=== PATIENT | female | born 1950 | race Hispanic/Latino ===

== ENCOUNTER 2020-11-29 07:35 | Inpatient (IN) | payer OTHER, MEDICARE ==
[~2020-11-29] VITALS: Ht 149.9 cm; Wt 75.9 kg
[2020-11-29 08:10] LABS: BASOPHILS % (AUTO) 0.4 % (0.0-5.0); EOSINOPHILS % (AUTO) 1.6 % (0.0-8.0); HEMATOCRIT 39.9 % (36-48); LYMPHOCYTES % (AUTO) 35.5 % (21.0-51.0); MEAN CORPUSCULAR HEMOGLOBIN 27.2 pg (27.0-33.0); MEAN CORPUSCULAR HGB CONC 33.1 g/dL (32.0-36.0); MEAN CORPUSCULAR VOLUME 82.1 fL (79-99); MONOCYTES % (AUTO) 7.1 % (3.0-13.0); PLATELET COUNT (AUTO) 409 K/uL (130-400); RED BLOOD CELL COUNT(AUTO) 4.86 MIL/uL (4.00-5.50); RED CELL DISTRIBUTION WIDTH 12.7 % (11.0-15.5); WHITE BLOOD COUNT (AUTO) 7.3 K/uL (4.8-10.8)
[2020-11-29 08:23] LABS: CREATININE 0.7 mg/dL (0.5-1.5); POTASSIUM 3.7 mmol/L (3.5-5.1)
[2020-11-29 08:25] LABS: INR 1.04 (0.85-1.15); PROTHROMBIN TIME 11.1 SEC (9.6-11.6)
[2020-11-29 08:26] LABS: PARTIAL THROMBOPLASTIN TIME 23.2 SEC (26.3-35.5)
[2020-11-29 08:28] LABS: ALBUMIN 2.9 g/dL (3.5-5.0); BILIRUBIN,TOTAL 0.6 mg/dL (0.2-1.0); TOTAL PROTEIN, SERUM 8.2 g/dL (6.0-8.3)
[2020-11-29 08:34] LABS: B-TYPE NATRIURETIC PEPTIDE 86 pg/mL (0-100)
[2020-11-29 08:48] LABS: ABG BASE EXCESS 1.9 mmol/L (-2.0-3.0); ABG HCO3 25.7 mmol/L (21.0-28.0); ABG OXYGEN SATURATION 94.5 % (95.0-99.0); ABG PCO2 38 mmHg (32-45)
[2020-11-29] MEDS ORDERED: CEFTRIAXONE 1G VIAL ONE (09:00)
[2020-11-29] MEDS ORDERED: DEXAMETHASONE SOD PHOSPHATE 4 MG/ML 5ML VIAL ONE (09:00)
[2020-11-29] MEDS ORDERED: AZITHROMYCIN 250 MG TABLET PO ONE (09:01)
[2020-11-29 09:20] LABS: BILIRUBIN,URINE Negative (NEGATIVE); COLOR,URINE Yellow (YELLOW); GLUCOSE, URINE (UA) Negative (NEGATIVE); KETONES,URINE Negative (NEGATIVE); LEUKOCYTE ESTERASE ,URINE Small (NEGATIVE); NITRATE,URINE Negative (NEGATIVE); OCCULT BLOOD,URINE Negative (NEGATIVE); PROTEIN,URINE Negative (NEGATIVE); UROBILINOGEN,URINE 0.2 mg/dL (0.2-1.0)
[2020-11-29 09:33] LABS: APPEARANCE,URINE CLEAR (CLEAR)
[2020-11-29 09:35] LABS: BACTERIA,URINE Few /HPF (None Seen); RBC,URINE 0-1 /HPF (0-1)
[2020-11-29 09:36] LABS: SQUAMOUS EPITHELIAL CELL,UR Rare /HPF (0-2)
[2020-11-29] MEDS ORDERED: IOHEXOL-350 75 ML VIAL IV ONE (09:38)
[2020-11-29] MEDS ORDERED: PHARMACY COMMUNICATION MISC SCH (11:45)
[2020-11-29] MEDS ORDERED: ONDANSETRON 4MG INJ IV PRN (11:45)
[2020-11-29] MEDS ORDERED: ERGOCALCIFEROL (VITAMIN D2) 50,000 UNIT CAPSULE PO ONE ×2 (11:45→16:45)
[2020-11-29] MEDS ORDERED: ALBUTEROL INHALER 90MCG/INH IH PRN (11:45)
[2020-11-29] MEDS ORDERED: ACETAMINOPHEN 325 MG TAB PO PRN ×2 (11:45)
[2020-11-29] MEDS ORDERED: LACTULOSE 20 GM/30 ML UDCUP PO PRN (11:45)
[2020-11-29 12:30] LABS: CHOLESTEROL 193 mg/dL (<200); HDL CHOLESTEROL 114 mg/dL (35-85); LDL DIRECT 130 mg/dL (0-99); TRIGLYCERIDES 166 mg/dL (30-200)
[2020-11-29 14:05] VITALS: BP 146/77
[2020-11-29 16:00] VITALS: BP 146/79
[2020-11-29] MEDS ORDERED: REMDESIVIR (EUA) 520 200 MG in 0.9% NACL 250ML 250 ML IV ONE (16:00)
[2020-11-29] MEDS ORDERED: COMPOUND IV REFRIGERATED 1 EACH IVSOLN MISC PRN (16:00)
[2020-11-29] MEDS: FAMOTIDINE 20MG TAB PO SCH ×2 (17:11→22:08)
[2020-11-29] MEDS: DEXAMETHASONE SOD PHOSPHATE 4 MG/ML 1ML VIAL IVP SCH (17:11)
[2020-11-29 20:00] VITALS: BP 127/68
[2020-11-29] MEDS ORDERED: 0.9%NACL 1000ML 1,000 ML IV ONE (22:24)
[2020-11-30] VITALS: BP 130/62
[2020-11-30] MEDS: INSULIN HUMULIN R 100 UNIT/ML 3ML SQ SCH ×5 (00:08→20:52)
[2020-11-30 04:00] VITALS: BP 142/76
[2020-11-30 05:00] LABS: BASOPHILS % (AUTO) 0.2 % (0.0-5.0); HEMATOCRIT 36.4 % (36-48); LYMPHOCYTES % (AUTO) 21.5 % (21.0-51.0); MEAN CORPUSCULAR HEMOGLOBIN 27.6 pg (27.0-33.0); MEAN CORPUSCULAR HGB CONC 33.5 g/dL (32.0-36.0); MEAN CORPUSCULAR VOLUME 82.4 fL (79-99); MONOCYTES % (AUTO) 5.6 % (3.0-13.0); NEUTROPHILS % (AUTO) 72.2 % (40.0-77.0); PLATELET COUNT (AUTO) 420 K/uL (130-400); RED BLOOD CELL COUNT(AUTO) 4.42 MIL/uL (4.00-5.50); RED CELL DISTRIBUTION WIDTH 12.5 % (11.0-15.5); WHITE BLOOD COUNT (AUTO) 5.8 K/uL (4.8-10.8)
[2020-11-30 05:26] LABS: ALBUMIN 2.8 g/dL (3.5-5.0); BILIRUBIN,TOTAL 0.3 mg/dL (0.2-1.0); CREATININE 0.7 mg/dL (0.5-1.5); CRP QUANTITATIVE 58.7 mg/L (0.00-9.0); POTASSIUM 3.9 mmol/L (3.5-5.1)
[2020-11-30] MEDS ORDERED: PHARMACY COMMUNICATION MISC SCH (06:00)
[2020-11-30 07:00] VITALS: BP 136/61
[2020-11-30] MEDS ORDERED: ENOXAPARIN SODIUM 40 MG/0.4 ML SYRINGE SQ SCH (09:00)
[2020-11-30] MEDS: ASCORBIC ACID 500 MG TAB PO SCH (09:31)
[2020-11-30] MEDS: ZINC SULFATE 220 CAPSULE PO SCH (09:31)
[2020-11-30] MEDS: FAMOTIDINE 20MG TAB PO SCH ×2 (09:31→20:52)
[2020-11-30] MEDS: ENOXAPARIN SODIUM 40 MG/0.4 ML SYRINGE SQ SCH (09:32)
[2020-11-30 11:00] VITALS: BP 120/47
[2020-11-30] MEDS: DEXAMETHASONE SOD PHOSPHATE 4 MG/ML 1ML VIAL IVP SCH (12:07)
[2020-11-30 15:00] VITALS: BP 135/60
[2020-11-30] MEDS: REMDESIVIR (EUA) 520 100 MG in 0.9% NACL 250ML 250 ML IV SCH (16:36)
[2020-11-30 20:35] VITALS: BP 128/59
[2020-12-01] VITALS (7 sets, daily range): BP systolic 109–147; BP diastolic 54–79
[2020-12-01 05:40] LABS: BASOPHILS % (AUTO) 0.2 % (0.0-5.0); HEMATOCRIT 36.1 % (36-48); LYMPHOCYTES % (AUTO) 16.5 % (21.0-51.0); MEAN CORPUSCULAR HEMOGLOBIN 28.2 pg (27.0-33.0); MEAN CORPUSCULAR HGB CONC 33.8 g/dL (32.0-36.0); MEAN CORPUSCULAR VOLUME 83.4 fL (79-99); MONOCYTES % (AUTO) 7.5 % (3.0-13.0); NEUTROPHILS % (AUTO) 75.3 % (40.0-77.0); PLATELET COUNT (AUTO) 467 K/uL (130-400); RED BLOOD CELL COUNT(AUTO) 4.33 MIL/uL (4.00-5.50); RED CELL DISTRIBUTION WIDTH 12.5 % (11.0-15.5); WHITE BLOOD COUNT (AUTO) 10.4 K/uL (4.8-10.8)
[2020-12-01] MEDS: INSULIN HUMULIN R 100 UNIT/ML 3ML SQ SCH ×4 (05:54→20:23)
[2020-12-01 06:16] LABS: ALBUMIN 2.8 g/dL (3.5-5.0); BILIRUBIN,TOTAL 0.3 mg/dL (0.2-1.0); CREATININE 0.7 mg/dL (0.5-1.5); CRP QUANTITATIVE 31.2 mg/L (0.00-9.0); POTASSIUM 4.1 mmol/L (3.5-5.1); TOTAL PROTEIN, SERUM 7.7 g/dL (6.0-8.3)
[2020-12-01] MEDS: FAMOTIDINE 20MG TAB PO SCH ×2 (09:18→20:20)
[2020-12-01] MEDS: ASCORBIC ACID 500 MG TAB PO SCH (09:18)
[2020-12-01] MEDS: ENOXAPARIN SODIUM 40 MG/0.4 ML SYRINGE SQ SCH ×2 (09:18→20:21)
[2020-12-01] MEDS: ZINC SULFATE 220 CAPSULE PO SCH (09:18)
[2020-12-01] MEDS: DEXAMETHASONE SOD PHOSPHATE 4 MG/ML 1ML VIAL IVP SCH (11:53)
[2020-12-01] MEDS: REMDESIVIR (EUA) 520 100 MG in 0.9% NACL 250ML 250 ML IV SCH (16:42)
[2020-12-02 03:24] VITALS: BP 145/77
[2020-12-02 04:55] LABS: BASOPHILS % (AUTO) 0.2 % (0.0-5.0); HEMATOCRIT 37.5 % (36-48); LYMPHOCYTES % (AUTO) 21.2 % (21.0-51.0); MEAN CORPUSCULAR HEMOGLOBIN 27.1 pg (27.0-33.0); MEAN CORPUSCULAR HGB CONC 33.1 g/dL (32.0-36.0); MEAN CORPUSCULAR VOLUME 82.1 fL (79-99); NEUTROPHILS % (AUTO) 68.9 % (40.0-77.0); PLATELET COUNT (AUTO) 484 K/uL (130-400); RED BLOOD CELL COUNT(AUTO) 4.57 MIL/uL (4.00-5.50); RED CELL DISTRIBUTION WIDTH 12.6 % (11.0-15.5); WHITE BLOOD COUNT (AUTO) 10.3 K/uL (4.8-10.8)
[2020-12-02 05:10] LABS: ALBUMIN 2.9 g/dL (3.5-5.0); BILIRUBIN,TOTAL 0.3 mg/dL (0.2-1.0); CREATININE 0.7 mg/dL (0.5-1.5); CRP QUANTITATIVE 21.5 mg/L (0.00-9.0); TOTAL PROTEIN, SERUM 7.5 g/dL (6.0-8.3)
[2020-12-02] MEDS: INSULIN HUMULIN R 100 UNIT/ML 3ML SQ SCH ×4 (05:42→21:28)
[2020-12-02 08:00] VITALS: BP 136/67
[2020-12-02] MEDS: ENOXAPARIN SODIUM 40 MG/0.4 ML SYRINGE SQ SCH ×2 (09:08→21:27)
[2020-12-02] MEDS: FAMOTIDINE 20MG TAB PO SCH ×2 (09:08→21:26)
[2020-12-02] MEDS: ASCORBIC ACID 500 MG TAB PO SCH (09:08)
[2020-12-02] MEDS: ZINC SULFATE 220 CAPSULE PO SCH (09:08)
[2020-12-02 12:00] VITALS: BP 122/64
[2020-12-02] MEDS: DEXAMETHASONE SOD PHOSPHATE 4 MG/ML 1ML VIAL IVP SCH (12:36)
[2020-12-02] MEDS: METFORMIN HCL 500 MG TABLET PO SCH ×2 (12:36→16:58)
[2020-12-02 16:00] VITALS: BP 122/62
[2020-12-02] MEDS: REMDESIVIR (EUA) 520 100 MG in 0.9% NACL 250ML 250 ML IV SCH (16:58)
[2020-12-02 20:52] VITALS: BP 117/59
[2020-12-03 00:14] VITALS: BP 125/60
[2020-12-03 03:50] VITALS: BP 120/66
[2020-12-03 05:32] LABS: BASOPHILS % (AUTO) 0.2 % (0.0-5.0); HEMATOCRIT 37.4 % (36-48); LYMPHOCYTES % (AUTO) 22.1 % (21.0-51.0); MEAN CORPUSCULAR HEMOGLOBIN 27.8 pg (27.0-33.0); MEAN CORPUSCULAR VOLUME 81.8 fL (79-99); MONOCYTES % (AUTO) 8.3 % (3.0-13.0); NEUTROPHILS % (AUTO) 68.8 % (40.0-77.0); PLATELET COUNT (AUTO) 521 K/uL (130-400); RED BLOOD CELL COUNT(AUTO) 4.57 MIL/uL (4.00-5.50); RED CELL DISTRIBUTION WIDTH 12.7 % (11.0-15.5); WHITE BLOOD COUNT (AUTO) 9.8 K/uL (4.8-10.8)
[2020-12-03 05:45] LABS: ALBUMIN 2.7 g/dL (3.5-5.0); BILIRUBIN,TOTAL 0.2 mg/dL (0.2-1.0); CREATININE 0.8 mg/dL (0.5-1.5); CRP QUANTITATIVE 13.5 mg/L (0.00-9.0); POTASSIUM 4.1 mmol/L (3.5-5.1); TOTAL PROTEIN, SERUM 7.1 g/dL (6.0-8.3)
[2020-12-03] MEDS: INSULIN HUMULIN R 100 UNIT/ML 3ML SQ SCH ×4 (07:30→21:00)
[2020-12-03] MEDS: GLIPIZIDE 5 MG TABLET PO SCH (07:44)
[2020-12-03 07:45] VITALS: BP 112/53
[2020-12-03] MEDS: FAMOTIDINE 20MG TAB PO SCH ×2 (08:40→21:53)
[2020-12-03] MEDS: METFORMIN HCL 500 MG TABLET PO SCH ×3 (08:40→16:39)
[2020-12-03] MEDS: ASCORBIC ACID 500 MG TAB PO SCH (08:40)
[2020-12-03] MEDS: ZINC SULFATE 220 CAPSULE PO SCH (08:40)
[2020-12-03] MEDS: ENOXAPARIN SODIUM 40 MG/0.4 ML SYRINGE SQ SCH ×2 (08:41→21:53)
[2020-12-03 10:48] VITALS: BP 100/56
[2020-12-03] MEDS: DEXAMETHASONE SOD PHOSPHATE 4 MG/ML 1ML VIAL IVP SCH (11:41)
[2020-12-03] MEDS: REMDESIVIR (EUA) 520 100 MG in 0.9% NACL 250ML 250 ML IV SCH (14:50)
[2020-12-03 15:43] VITALS: BP 94/49
[2020-12-03 20:39] VITALS: BP 93/53
[2020-12-04 00:23] VITALS: BP 114/55
[2020-12-04 03:52] VITALS: BP 111/56
[2020-12-04 05:48] LABS: BASOPHILS % (AUTO) 0.4 % (0.0-5.0); EOSINOPHILS % (AUTO) 0.8 % (0.0-8.0); HEMATOCRIT 38.3 % (36-48); LYMPHOCYTES % (AUTO) 43.6 % (21.0-51.0); MEAN CORPUSCULAR HEMOGLOBIN 27.2 pg (27.0-33.0); MEAN CORPUSCULAR HGB CONC 32.9 g/dL (32.0-36.0); MEAN CORPUSCULAR VOLUME 82.5 fL (79-99); MONOCYTES % (AUTO) 7.5 % (3.0-13.0); PLATELET COUNT (AUTO) 473 K/uL (130-400); RED BLOOD CELL COUNT(AUTO) 4.64 MIL/uL (4.00-5.50); RED CELL DISTRIBUTION WIDTH 12.8 % (11.0-15.5); WHITE BLOOD COUNT (AUTO) 9.2 K/uL (4.8-10.8)
[2020-12-04] MEDS: INSULIN HUMULIN R 100 UNIT/ML 3ML SQ SCH ×3 (05:50→16:30)
[2020-12-04 06:05] LABS: ALBUMIN 2.6 g/dL (3.5-5.0); BILIRUBIN,TOTAL 0.2 mg/dL (0.2-1.0); CREATININE 0.9 mg/dL (0.5-1.5); CRP QUANTITATIVE 9.8 mg/L (0.00-9.0); POTASSIUM 4.1 mmol/L (3.5-5.1); TOTAL PROTEIN, SERUM 6.7 g/dL (6.0-8.3)
[2020-12-04] MEDS: GLIPIZIDE 5 MG TABLET PO SCH (06:56)
[2020-12-04 08:00] VITALS: BP 90/51
[2020-12-04] MEDS: FAMOTIDINE 20MG TAB PO SCH (08:19)
[2020-12-04] MEDS: ASCORBIC ACID 500 MG TAB PO SCH (08:19)
[2020-12-04] MEDS: ZINC SULFATE 220 CAPSULE PO SCH (08:19)
[2020-12-04] MEDS: ENOXAPARIN SODIUM 40 MG/0.4 ML SYRINGE SQ SCH (08:20)
[2020-12-04] MEDS: METFORMIN HCL 500 MG TABLET PO SCH ×3 (08:20→16:54)
[2020-12-04 12:00] VITALS: BP 106/57
[2020-12-04] MEDS ORDERED: METF-444 PO (12:06)
[2020-12-04] MEDS: DEXAMETHASONE SOD PHOSPHATE 4 MG/ML 1ML VIAL IVP SCH (12:12)
[2020-12-04] MEDS ORDERED: ASPI-1197 PO (12:15)
[2020-12-04] MEDS ORDERED: DEXA6TAB7 PO (12:15)
[2020-12-04] MEDS ORDERED: GLIP5TAB11 PO (12:15)
[2020-12-04] MEDS ORDERED: PANT20TA18 PO (12:15)
[2020-12-04 12:25] LABS: HEMOGLOBIN A1C 7.3 % (4.0-6.0)
[2020-12-04 16:00] VITALS: BP 146/45
== END 2020-12-04 17:20 | disposition home or self-care (01) | DRG 177 ==
LOC: EDH 07:35 → EDHIP 11:36 → 2AH 14:09
PROVIDERS: ADMIT Hospitalist; ATTEND Hospitalist
PROC: XW033E5 Introduction of Remdesivir Anti-infective into Peripheral Vein, Percutaneous Approach, New Technology Group 5 (ICD-10-PCS; 2020-11-29)
PROC: XW13325 Transfusion of Convalescent Plasma (Nonautologous) into Peripheral Vein, Percutaneous Approach, New Technology Group 5 (ICD-10-PCS; principal; 2020-11-30)
DX: U07.1 COVID-19 (principal); J12.82 Pneumonia due to coronavirus disease 2019; E11.9 Type 2 diabetes mellitus without complications; E78.5 Hyperlipidemia, unspecified; R09.02 Hypoxemia; I10 Essential (primary) hypertension; R06.03 Acute respiratory distress; Z90.710 Acquired absence of both cervix and uterus; Z90.49 Acquired absence of other specified parts of digestive tract
CPT/HCPCS: 36415; 36600; 71045; 71275; 80053; 80061; 81001; 82728; 82803; 82948; 83036; 83615; 83880; 84145; 84484; 85025; 85378; 85610; 85730; 86140; 86900; 86901; 86927; 87040; 87426; 87804; 87880; 93005; 94760; G0378; J0696; J1100; J1650; J7030; J7050; Q9967

== ENCOUNTER 2022-05-15 20:16 | Emergency (ER) | payer OTHER, MEDICARE ==
[~2022-05-15] VITALS: Ht 149.9 cm; Wt 72.6 kg
[~2022-05-15 20:16] MED LIST: ASPI-1197 PO; DEXA6TAB7 PO; GLIP5TAB11 PO; METF-444 PO; PANT20TA18 PO
[2022-05-16 02:38] VITALS: BP 140/67
== END 2022-05-16 02:46 | disposition home or self-care (01) ==
LOC: EDH 20:16
DX: B34.9 Viral infection, unspecified (principal); Z20.822 Contact with and (suspected) exposure to COVID-19; E11.9 Type 2 diabetes mellitus without complications; I10 Essential (primary) hypertension; Z98.890 Other specified postprocedural states; Z90.49 Acquired absence of other specified parts of digestive tract; Z79.899 Other long term (current) drug therapy; Z79.82 Long term (current) use of aspirin; Z79.84 Long term (current) use of oral hypoglycemic drugs
CPT/HCPCS: 71045; 87635; 87804 ×2; 87880; 99283; C9803

== ENCOUNTER 2024-04-01 12:18 | Emergency (ER) | payer OTHER ==
[~2024-04-01 12:18] MED LIST changes: +ASPI-1005 PO; -ASPI-1197 PO; +ATOR40TA69 PO; +CLOP-31 PO; -DEXA6TAB7 PO; +FURO20TA6 PO; -GLIP5TAB11 PO; -METF-444 PO; +METO25 PO; +NITR0.4T50 SL; -PANT20TA18 PO
[2024-04-01 13:48] LABS: BASOPHILS # (AUTO) 0.04 K/uL (0.00-0.20); BASOPHILS % (AUTO) 0.5 % (0.0-5.0); EOSINOPHILS # (AUTO) 0.08 K/uL (0.00-0.70); EOSINOPHILS % (AUTO) 1.1 % (0.0-8.0); HEMATOCRIT 37.6 % (36-48); IMMATURE GRANULOCYTE ABSOLUTE 0.02 K/uL (0-1); LYMPHOCYTES # (AUTO) 2.7 K/uL (1.0-4.8); LYMPHOCYTES % (AUTO) 36.4 % (21.0-51.0); MEAN CORPUSCULAR HEMOGLOBIN 27.2 pg (27.0-33.0); MEAN CORPUSCULAR HGB CONC 32.4 g/dL (32.0-36.0); MEAN CORPUSCULAR VOLUME 83.9 fL (79-99); MONOCYTES # (AUTO) 0.5 K/uL (0.1-1.0); MONOCYTES % (AUTO) 6.7 % (3.0-13.0); NEUTROPHILS # (AUTO) 4.1 K/uL (1.8-7.7); PLATELET COUNT (AUTO) 285 K/uL (130-400); RED BLOOD CELL COUNT(AUTO) 4.48 MIL/uL (4.00-5.50); RED CELL DISTRIBUTION WIDTH 13.6 % (11.0-15.5); WHITE BLOOD COUNT (AUTO) 7.4 K/uL (4.8-10.8)
[2024-04-01 13:55] LABS: POTASSIUM 4.1 mmol/L (3.5-5.1)
[2024-04-01 13:59] LABS: ALBUMIN 3.4 g/dL (3.5-5.0); BILIRUBIN,TOTAL 0.3 mg/dL (0.2-1.0); MAGNESIUM 2.1 mg/dL (1.80-2.40)
[2024-04-01 15:57] VITALS: BP 127/61; PULSE 62; RESP 14; O2SAT 99
== END 2024-04-01 16:18 | disposition home or self-care (01) ==
LOC: EDH 12:18
DX: R00.2 Palpitations (principal); I10 Essential (primary) hypertension; E11.9 Type 2 diabetes mellitus without complications; E78.00 Pure hypercholesterolemia, unspecified; Z79.82 Long term (current) use of aspirin; Z79.899 Other long term (current) drug therapy; Z98.890 Other specified postprocedural states; Z88.8 Allergy status to other drugs, medicaments and biological substances
CPT/HCPCS: 36415; 71045; 80053; 83735; 83880; 84484; 85025; 93005

== ENCOUNTER → 2024-04-29 | Outpatient (CLI) | payer OTHER ==
[2024-04-29 12:37] LABS: HEMOGLOBIN A1C 6.7 % (4.0-6.0)
[2024-04-29 12:42] LABS: CHOLESTEROL 226 mg/dL (<200); HDL CHOLESTEROL 47 mg/dL (35-85); LDL DIRECT 152 mg/dL (0-99); TRIGLYCERIDES 170 mg/dL (30-200)
== END | disposition home or self-care (01) ==
LOC: LAB 10:17
PROVIDERS: ATTEND Student in an Organized Health Care Education/Training Program
DX: I10 Essential (primary) hypertension (principal); E78.5 Hyperlipidemia, unspecified; Z79.899 Other long term (current) drug therapy
CPT/HCPCS: 36415; 80061; 83036

== ENCOUNTER → 2024-05-15 | Outpatient (CLI) | payer OTHER | END | disposition home or self-care (01) | LOC: SHCH 08:08 | PROVIDERS: ATTEND Student in an Organized Health Care Education/Training Program | DX: I08.3 Combined rheumatic disorders of mitral, aortic and tricuspid valves (principal); R00.2 Palpitations | CPT/HCPCS: 93306 ==

== ENCOUNTER 2024-12-05 10:32 | Emergency (ER) | payer OTHER, MEDICARE ==
[~2024-12-05] VITALS: Ht 149.9 cm; Wt 60.8 kg
--- NOTE | 2024-12-05 11:28 | ERN ---
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 Patient reports she was standing on top of her bed placing a black and on the window when she slipped and hit her head on the wall. Patient denies falling, LOC or any other associated symptoms at this time. Patient is not on blood thinners. Tylenol taken prior to arrival. Allergies: Coded Allergies: terbinafine (Unverified Allergy, Intermediate, RASH, 04/01/24) No Known Allergies (Verified Allergy, Unknown, 11/29/20) Home Meds Active Scripts Nitroglycerin (Nitroglycerin) 0.4 Mg Tab.subl, 0.4 MG SL [id number] for chest pain, #30 TAB.SL 1 Refill Prov:RADHIKA WHITAKER MD 01/18/24 Metoprolol Tartrate (Lopressor) 25 Mg Tab, 25 MG PO BID for 30 Days, #60 TAB 1 Refill Prov:RADHIKA WHITAKER MD 01/18/24 Furosemide (Lasix 20Mg Tab) 20 Mg Tablet, 20 MG PO BID@09,17 for 30 Days, #60 TAB 1 Refill Prov:RADHIKA WHITAKER MD 01/18/24 Clopidogrel Bisulfate (Plavix) 75 Mg Tablet, 75 MG PO DAILY for 30 Days, #30 TAB 1 Refill Prov:RADHIKA WHITAKER MD 01/18/24 Atorvastatin Calcium (LIPITOR) 40 Mg Tablet, 40 MG PO HS for 30 Days, #30 TAB 1 Refill Prov:RADHIKA WHITAKER MD 01/18/24 Aspirin (ASPIRIN 81MG CHEW TAB) 81 Mg Tab.chew, 81 MG PO DAILY for 30 Days, #30 TAB.CHEW 1 Refill Prov:RADHIKA WHITAKER MD 01/18/24 Past Medical History Past Medical History: Diabetes-Type II, High Cholesterol, Heart Disease, Hypertension Surgical History: Hysterectomy, Cholecystectomy, CABG, Other Surgical History Other: BLADDER TUMOR Social History: Other Review of System Dictation Constitutional: Negative for fever,chills, and weight loss Eyes: Negative for injury, pain,redness, and discharge ENT: Negative for injury,pain or swelling Cardiovascular: Negative for chest pain, palpitations, and edema Respiratory: Negative for shortness of breath, cough, and wheezing, Abdomen/GI: Negative for abdominal pain, nausea, vomiting, diarrhea, and constipation Back: Negative for injury and pain : Negative for injury, bleeding and discharge MS/Extremity: Negative for injury and deformity Skin: Negative for rash, and discoloration Neuro: Positive for head injury, negative for LOC, weakness, numbness, tingling, and seizure Psych: Negative for suicide ideation, homicidal ideation, and hallucinations Initial Vital Sign VS Vital Signs Date Time Temp Pulse Resp B/P (MAP) Pulse Ox O2 Delivery O2 Flow Rate FiO2 12/05/24 10:40 98.1 70 16 140/73 99 Room Air 0 Physical Exam Dictation General: awake, alert, NAD Head/Face: Normocephalic, atraumatic Eyes: PERRL, EOMI, vision at baseline ENT: oral cavity clear, TMs clear, no signs of infection Neck: Trachea midline, supple, no nuchal rigidity Cardiovascular: RRR, normal S1/S2, No MRGs, no JVD Respiratory: CTAB, no respiratory distress, No rales or wheezes Abdomen: Soft, non-tender, non-distended, normal bowel sounds, no guarding or rebound. Skin: Warm, dry, normal turgor, no rash MS/Extremity: Pulses equal, no cyanosis, neurovascular intact, FROM Neuro: COAx4, GCS 15, strength 5/5, CN 2-12 intact, normal cerebellar exam, normal gait, Psych: Normal behavior, mood, and affect normal Results (Laboratory/Radiology) CT Scan Comment: REASON: head injury ORDERING PHYSICIAN: BURAK JOYCE MD PROCEDURE: HEAD WO - CT HEAD/BRAIN W/O CONTRAST CT HEAD/BRAIN W/O CONTRAST CLINICAL HISTORY: head injury COMPARISON: None TECHNIQUE: Multiple sequential axial images of the head were obtained from the base of the skull through vertex. CT was performed with one or more of the following dose reduction techniques: automated exposure control, adjustment of the mA and/or kV according to patient size, or use of iterative reconstruction technique FINDINGS: There is mild atrophy and small vessel disease. The orbital contents, paranasal sinuses and mastoid air cells are within normal limits. The calvarium is intact. IMPRESSION: There are no acute findings. DICTATED BY: JOSETTE BORDEN DO DATE: 12/05/24 1323 ED Course ED Course Orders Procedure Category Date Status Time Ct Head/Brain W/O CT 12/05/24 Resulted Contrast 11:01 Vital Signs Date Time Temp Pulse Resp B/P (MAP) Pulse Ox O2 Delivery O2 Flow Rate FiO2 12/05/24 10:40 98.1 70 16 140/73 99 Room Air 0 Medical Decision Making MDM MDM: Differential diagnosis: Head injury, contusion Risk of complication and/or morbidity or mortality of patient management: None Medications-Per medication reconciliation Need for hospitalization: Patient does not meet criteria for hospitalization. Need for emergency major/minor surgery: No There are no social concerns with this patient. Prescription drug management Prescriptions will include symptomatic care I independently interpreted the test that were performed, results were reviewed by me and considered findings on radiology if ordered. Medical management and examination interpretation discussions were had by me with other qualified healthcare professionals as indicated for the patient's care. DX & DISP Disposition: Discharge Departure Impression: Primary Impression: Head injury Condition: Stable Referrals: JOHN MCGILL (PCP) BURAK JOYCE MD Dec 05, 2024 11:28
--- NOTE | 2024-12-05 13:26 | HMCIMG ---
CT HEAD/BRAIN W/O CONTRAST CLINICAL HISTORY: head injury COMPARISON: None TECHNIQUE: Multiple sequential axial images of the head were obtained from the base of the skull through vertex. CT was performed with one or more of the following dose reduction techniques: automated exposure control, adjustment of the mA and/or kV according to patient size, or use of iterative reconstruction technique FINDINGS: There is mild atrophy and small vessel disease. The orbital contents, paranasal sinuses and mastoid air cells are within normal limits. The calvarium is intact. IMPRESSION: There are no acute findings.
[2024-12-05 14:31] VITALS: BP 146/71; PULSE 62; RESP 17; TEMP 97.8; O2SAT 96
== END 2024-12-05 14:39 | disposition home or self-care (01) ==
LOC: EDH 10:32
DX: S09.90XA Unspecified injury of head, initial encounter (principal); E11.9 Type 2 diabetes mellitus without complications; E78.00 Pure hypercholesterolemia, unspecified; I10 Essential (primary) hypertension; Z79.02 Long term (current) use of antithrombotics/antiplatelets; Z79.82 Long term (current) use of aspirin; Z79.899 Other long term (current) drug therapy; Z90.49 Acquired absence of other specified parts of digestive tract; Z90.710 Acquired absence of both cervix and uterus; Z95.1 Presence of aortocoronary bypass graft; W01.0XXA Fall on same level from slipping, tripping and stumbling without subsequent striking against object, initial encounter; Y93.89 Activity, other specified; Y92.89 Other specified places as the place of occurrence of the external cause; Y99.8 Other external cause status
CPT/HCPCS: 70450; 99284